=== PATIENT | male | born 1985 | race African-American/Black ===

== ENCOUNTER 2019-04-01 21:59 | Emergency (ER) | payer BC ==
--- NOTE | 2019-04-01 22:10 | EDM.PDOC ---
ED HPI GENERAL MEDICAL PROBLEM - General Chief Complaint: Genitourinary Problem Stated Complaint: PT SPOKE TO NURSE Time Seen by Provider: 04/01/19 22:10 Source of Information: Reports: Patient History Limitations: Reports: No Limitations - History of Present Illness INITIAL COMMENTS - FREE TEXT/NARRATIVE: HISTORY AND PHYSICAL: History of present illness: Patient is a 33-year-old male presents to the ED with complaint of a rash on his genitals. He states it started about 2 months ago and has progressively gotten worse. He states it is itchy but denies pain. He denies dysuria or penile discharge. He states he has not had sexual intercourse in 2 months since he broke up with his ex-girlfriend. He is concerned for STDs. Review of systems: As per history of present illness and below otherwise all systems reviewed and negative. Past medical history: As per history of present illness and as reviewed below otherwise noncontributory. Surgical history: As per history of present illness and as reviewed below otherwise noncontributory. Social history: No reported history of drug or alcohol abuse. Family history: As per history of present illness and as reviewed below otherwise noncontributory. Physical exam: General: Patient sitting comfortably in no acute distress and nontoxic appearing HEENT: Atraumatic, normocephalic, pupils reactive, negative for conjunctival pallor or scleral icterus, mucous membranes moist, throat clear, neck supple, nontender, trachea midline. No meningeal signs. Lungs: Clear to auscultation, breath sounds equal bilaterally, chest nontender. Heart: S1S2, regular, negative for clicks, rubs, or overt murmur. Abdomen: Soft, nondistended, nontender. Negative for masses or hepatosplenomegaly. Negative for costovertebral tenderness. No rigidity, rebound , guarding. Pelvis: Stable nontender. Genitourinary: There is dry, scaly skin with some fissuring on the penile shaft. There are no ulcerations, papules, or pustules. Rectal: Deferred. Extremities: Atraumatic, negative for cords or calf pain. Neurovascular unremarkable. Neuro: Awake, alert, oriented. Cranial nerves II through XII unremarkable. Cerebellum unremarkable. Motor and sensory unremarkable throughout. Exam nonfocal. Notes: Diagnostics: urine gonorrhea/chlamydia Therapeutics: 250mg Rocephin IM 1g Azithromycin PO Prescriptions: Clotrimazole Impression: Candidal infection, STD concern Plan: Use topical cream as instructed Follow up with urology Return to ED As needed as discussed Definitive disposition and diagnosis as appropriate pending reevaluation and review of above. - Related Data Allergies Allergy/AdvReac Type Severity Reaction Status Date / Time No Known Allergies Allergy Verified 04/01/19 22:07 Home Meds: Home Meds Clotrimazole [Clotrimazole 1%] 15 gm .XX BID #1 tube 04/01/19 [Rx] Past Medical History Genitourinary History: Reports: None - Infectious Disease History Infectious Disease History: Reports: Chicken Pox - Past Surgical History Male Surgical History: Reports: Other (See Below) Other Male Surgeries/Procedures: L testicular sx Social & Family History - Family History Family Medical History: Noncontributory - Tobacco Use Smoking Status *Q: Never Smoker Second Hand Smoke Exposure: No - Caffeine Use Caffeine Use: Reports: Energy Drinks - Recreational Drug Use Recreational Drug Use: No ED ROS GENERAL - Review of Systems Review Of Systems: ROS reveals no pertinent complaints other than HPI. ED EXAM, RENAL/ - Physical Exam Exam: See Below (see dictation) Course - Vital Signs Last Recorded V/S: Last Vital Signs Temp 97.2 F 04/01/19 22:03 Pulse 88 04/01/19 22:03 Resp 17 04/01/19 22:03 BP 144/105 H 04/01/19 22:03 Pulse Ox 97 04/01/19 22:03 - Orders/Labs/Meds Orders: Active Orders 24 hr Category Date Time Status CHLAMYDIA AND GONORRHEA BY [facility] Stat Lab 04/01/19 22:13 Ordered Departure - Departure Time of Disposition: 22:41 Disposition: Home, Self-Care 01 Condition: Good Clinical Impression: Candidal skin infection, Concern about STD in male without diagnosis - Discharge Information Referrals: PCP,None [Primary Care Provider] - Forms: ED Department Discharge Additional Instructions: The following information is given to patients seen in the emergency department who are being discharged to home. This information is to outline your options for follow-up care. We provide all patients seen in our emergency department with a follow-up referral. The need for follow-up, as well as the timing and circumstances, are variable depending upon the specifics of your emergency department visit. If you don't have a primary care physician on staff, we will provide you with a referral. We always advise you to contact your personal physician following an emergency department visit to inform them of the circumstance of the visit and for follow-up with them and/or the need for any referrals to a consulting specialist. The emergency department will also refer you to a specialist when appropriate. This referral assures that you have the opportunity for follow-up care with a specialist. All of these measure are taken in an effort to provide you with optimal care, which includes your follow-up. Under all circumstances we always encourage you to contact your private physician who remains a resource for coordinating your care. When calling for follow-up care, please make the office aware that this follow-up is from your recent emergency room visit. If for any reason you are refused follow-up, please contact the [facility] Emergency Department at and asked to speak to the emergency department charge nurse. [facility] Primary [facility] [address] [place] [address] [place] [address] [facility] Specialty Care - Urology [address] [place] [id number] Use topical cream as instructed Follow up with urology Return to ED As needed as discussed - My Orders Last 24 Hours: My Active Orders 04/01/19 22:13 CHLAMYDIA AND GONORRHEA BY [facility] Stat - Assessment/Plan Last 24 Hours: My Active Orders 04/01/19 22:13 CHLAMYDIA AND GONORRHEA BY [facility] Stat
[2019-04-01] MEDS ORDERED: Azithromycin 250 MG Tab PO STA (22:39)
[2019-04-01] MEDS ORDERED: cefTRIAXone 250 MG in Lidocaine 1% 1 ML IM ONE (22:39)
== END 2019-04-01 22:56 | disposition home or self-care (01) ==
LOC: MW.ED 21:59
DX: B37.9 Candidiasis, unspecified (principal)
CPT/HCPCS: 87491; 87591; 96372; 99283; A9270; J0696; J2001; 87529